=== PATIENT | male | born 1955 | race Caucasian/White ===

== ENCOUNTER 2018-09-12 19:06 | Observation (INO) | payer BC ==
[~2018-09-12 19:06] MED LIST: ISOVUE-370 76%-LOCM 1 ML ONE
[2018-09-12 19:39] LABS: #Basophils 0.1 thou/uL (0.0-0.2); #Eosinphils 0.4 thou/uL (0.0-0.7); #Lymphocytes 2.1 thou/uL (1.20-3.40); #Monocytes 1.4 thou/uL (0.11-0.59); #Neutrophils 8.7 thou/uL (1.40-6.50); %Basophils 0.6 % (0.0-1.0); %Eosinophils 3.2 % (0.0-10.0); %Lymphocytes 16.3 % (21.0-51.0); %Monocytes 10.8 % (0.0-10.0); %Neutrophils 69.1 % (42.0-75.0); Hemoglobin 15.8 g/dL (14.0-18.0); Mean Corpuscular HGB CONC 34.6 g/dL (32.0-36.0); Mean Corpuscular Hemoglobin 32.7 pg (27.0-31.0); Mean Corpuscular Volume 94.6 fL (78.0-98.0); Mean Platelet Volume 9.7 fL (7.4-10.4); Platelet Count 219 thou/uL (130-400); RBC Distribution Width 11.8 % (11.5-14.5); Red Blood Cell (RBC) Count 4.82 mill/uL (4.70-6.10); White Blood Cell (WBC) Count 12.6 thou/uL (4.8-10.8)
--- NOTE | 2018-09-12 19:57 | RAD ---
CHEST ONE VIEW: HISTORY: Chest pain. FINDINGS: Heart size is within normal limits. The aorta is tortuous. The lungs are clear of any infiltrative process. IMPRESSION: No active intrathoracic disease. POS: NAYANA
[2018-09-12] MEDS ORDERED: Ketorolac Tromethamine 30 MG/ML VIAL ONE (19:58)
[2018-09-12] MEDS ORDERED: Morphine 4 MG/ML VIAL ONE (19:58)
[2018-09-12 20:00] LABS: ALT (SGPT) 30 U/L (8-55); AST (SGOT) 24 U/L (5-34); Albumin 4.6 g/dL (3.4-4.8); Alkaline Phosphatase 59 U/L (40-150); Anion Gap 10 mmol/L (10-20); BUN (Urea Nitrogen) 17 mg/dL (8.4-25.7); CK (CPK) 125 U/L (30-200); Calc. Creatinine Clearance 0 mL/min (70-130); Calcium 9.6 mg/dL (7.8-10.44); Carbon Dioxide 26 mmol/L (23-31); Chloride 105 mmol/L (98-107); Estimated GFR-MDRD 68; Globulin 3.4 g/dL (2.4-3.5); Glucose 96 mg/dL (80-115); Lipase 16 U/L (8-78); Sodium 137 mmol/L (136-145)
[2018-09-12 20:03] LABS: CKMB 2.4 ng/mL (0-6.6); Troponin I Less than 0.010 ng/mL (< 0.028)
--- NOTE | 2018-09-12 21:47 | CT ---
CT ANGIOGRAM OF THE CHEST AND ABDOMEN: 09/12/2018 HISTORY: Left-sided chest pain and shoulder pain, radiating into the axillary region. COMPARISON: None. TECHNIQUE: Serial axial CT imaging at 2.5 mm intervals, from the thoracic inlet through the aortic bifurcation, with IV contrast, using a CT angiogram protocol. Coronal and sagittal 3D reformatted imaging obtaine d. FINDINGS: No axillary, hilar, or mediastinal lymphadenopathy noted. There is no significant pleural, pericardial, or mediastinal fluid noted. No pneumothorax is noted on either side. There is a lesion within the left mainstem bronchus, measuring 6 mm, best seen on image 38, etiology/ significance uncertain. This could signify a polypoid lesion or a focal area of mucus. The lung parenchyma demonstrates no acute findings on either side. There is no evidence for aneurysm or dissection of the thoracic aorta. The liver, gallbladder, spleen, pancreas, adrenal glands, and kidneys demonstrate no acute findings. There is an anterior mid pole right renal cyst. Limited assessment of the bowel demonstrates diverticulosis of the descending colon. There are scattered, small caliber, upper abdominal varices, in the right upper quadrant and left upp er quadrant, which could be related to hepatocellular disease. Clinical correlation is required. There is no aneurysm or dissection of the abdominal aorta . There is atherosclerotic calcification of the infrarenal abdominal aorta. The celiac axis, the super ior mesenteric artery, The bilateral renal arteries, and the inferior mesenteric artery are patent. Review of the osseous structures demonstrates multilevel degenerative change throughout the mid thora cic spine and throughout the lumbar spine. Multiple levels within the lumbar spine demonstrate promi nently, as well as prominent disk space narrowing, osteophytes formation, and vacuum rené formation. On axial image 167, there is a clustered area of rim calcified structures, clustered within the right lower quadrant, in total measuring 1.9 cm. This could represent a collection of calcified structure s within bowel or could represent a calcified mesenteric mass, on the basis of carcinoid tumor. IMPRESSION: 1. No evidence for aneurysm or dissection of the thoracic or abdominal aorta. 2. Polypoid density within the mainstem bronchus on the left, which could represent a polypoid lesio n or a focus or mucus. Short-term followup CT examination of the chest in 4-6 weeks is advised. If this focus persists, bronchoscopy would be advised. 3. Clustered area of rim calcified structures within the right lower quadrant, which may represent b owel content. A calcified soft tissue mass within the mesentery, on the basis of a carcinoid tumor, is a possibility. Short-term follow-up CT examination of the abdomen and pelvis is advised, as somet kayla within the bowel would clear while a calcified mass within the mesentery would not. 4. Small caliber upper abdominal varices. CODE T POS: DAVID
[2018-09-12 22:54] LABS: Troponin I Less than 0.010 ng/mL (< 0.028)
--- NOTE | 2018-09-12 23:12 | PDOC.FPRHP ---
- History of Present Illness Chief Complaint: chest pain History of Present Illness: This is a 63 yo male presenting to the ER for chest pain. Patient states the chest pain started a few days ago and has gotten progressively worse. Patients describes the pain as sharp, left sided and radiating down his arm. He also notes an episode of sharp back pack, left upper back as well. He endorses that his left fingers would go numb during these episodes of pain. Patient states the pain has been intermittent. Worse while laying still. Better with walking. Patient states he took ASA but no other medication to relief pain. Patient denies injury to left shoulder/arm. Patient rates pain 10/10 at its worst and pain was relieved after medications given in ED. Endorses waking up during the night over the last couple nights due to the pain. Patient denies NVD, fever, chills, diaphoresis, abdominal pain, LE swelling. ED Course: Patient given ketorolac 30mg IV, 4mc IV morphine, ASA 324 - Allergies/Adverse Reactions Allergies Allergy/AdvReac Type Severity Reaction Status Date / Time No Known Drug Allergies Allergy Verified 09/12/18 23:51 - Home Medications Medication Instructions Recorded Confirmed Type Amlodipine [Norvasc] 10 mg PO DAILY 09/12/18 09/12/18 History Levothyroxine Sodium [Synthroid] 50 mcg PO DAILY 09/12/18 09/12/18 History - History PMHx: HTN, hypothyroidism, hypertensive cardiomegaly PSHx: right femur fixation, appendectomy, inguinal hernia FHx: mother - aneurysm; father -lung cancer, [place] Social: former smoker - quit within the last 2 years, > 25 yr smoking hx of 1- 2packs/day; occasional alcohol use, denies drug use - Review of Systems General: denies: fever/chills, weight/appetite/sleep changes, night sweats, fatigue Eyes: denies: vision changes ENT: denies: nasal congestion Respiratory: denies: cough, congestion, shortness of breath, exercise intolerance Cardiovascular: reports: chest pain, palpitation, edema Gastrointestinal: denies: nausea, vomiting, diarrhea, constipation, abdominal pain Genitourinary: denies: dysuria Skin: denies: rashes, lesions, jaundice Musculoskeletal: reports: pain, tenderness. denies: stiffness, swelling, arthritis/arthralgias Neurological: reports: numbness. denies: syncope, seizure, weakness - Vital signs BP: 157/90 HR: 76 RR: 18 Tmax: 97.8 Pox: 100% on RA Wt: 90.7kg - Physical Exam Constitutional: NAD, awake, alert and oriented, well developed HEENT: normocephalic and atraumatic, PERRLA, EOMI, conjunctiva clear, no scleral icterus, grossly normal vision, grossly normal hearing, MMM Neck: supple, FROM, trachea midline, no JVD Chest: no-tender to palpation, no lesions Heart: RRR, normal S1/S2, no murmurs/rubs/gallops Lungs: CTAB, no respiratory distress, good air movement, no wheezing Abdomen: soft, non-tender, bowel sounds present Musculoskeletal: normal structure, normal tone -Musculoskeletal: TTP of left deltoid/upper arm/scapula Neurological: no focal deficit, CN II-XII intact, normal sensation -Neurological: strength 5/5 in upper extremities Skin: no rash/lesions, good turgor, capillary refill <2 seconds Psychiatric: normal mood and affect, good judgment and insight, intact recent and remote memory FMR H&P: Results - Labs Result Diagrams: 09/13/18 01:43 09/13/18 01:43 Lab results: WBC 12.6 thou/uL (4.8-10.8) H 09/12/18 19:30 Hgb 15.8 g/dL (14.0-18.0) 09/12/18 19:30 Hct 45.6 % (42.0-52.0) 09/12/18 19:30 MCV 94.6 fL (78.0-98.0) 09/12/18 19:30 Plt Count 219 thou/uL (130-400) 09/12/18 19:30 Neutrophils % 69.1 % (42.0-75.0) 09/12/18 19:30 Sodium 137 mmol/L (136-145) 09/12/18 19:30 Potassium 4.0 mmol/L (3.5-5.1) 09/12/18 19:30 Chloride 105 mmol/L (98-107) 09/12/18 19:30 Carbon Dioxide 26 mmol/L (23-31) 09/12/18 19:30 BUN 17 mg/dL (8.4-25.7) 09/12/18 19:30 Creatinine 1.09 mg/dL (0.6-1.3) 09/12/18 19:30 Glucose 96 mg/dL (80-115) 09/12/18 19:30 Calcium 9.6 mg/dL (7.8-10.44) 09/12/18 19:30 Total Bilirubin 1.0 mg/dL (0.2-1.2) 09/12/18 19:30 AST 24 U/L (5-34) 09/12/18 19:30 ALT 30 U/L (8-55) 09/12/18 19:30 Alkaline Phosphatase 59 U/L (40-150) 09/12/18 19:30 Creatine Kinase 125 U/L (30-200) 09/12/18 19:30 CK-MB (CK-2) 2.4 ng/mL (0-6.6) 09/12/18 19:30 Serum Total Protein 8.0 g/dL (5.8-8.1) 09/12/18 19:30 Albumin 4.6 g/dL (3.4-4.8) 09/12/18 19:30 Lipase 16 U/L (8-78) 09/12/18 19:30 - EKG Interpretation EKG: normal sinus rhythm, no ST changes - Radiology Interpretation CT scan - chest Status: report reviewed by me (Density in left mainstem bronchus; calcified soft tissue mass in mesentery - possible carcinoid tumor) FMR H&P: A/P - Problem List (1) Chest pain Current Visit: Yes Status: Acute Code(s): R07.9 - CHEST PAIN, UNSPECIFIED (2) Hypertensive cardiomegaly Current Visit: Yes Status: Acute Code(s): I11.9 - HYPERTENSIVE HEART DISEASE WITHOUT HEART FAILURE (3) Hypothyroid Current Visit: Yes Status: Acute Code(s): E03.9 - HYPOTHYROIDISM, UNSPECIFIED - Plan Atypical Chest Pain - ACS r/o - likely MSK pain - heart score 2 - Trop neg, will trend one more time @ 0130 - nml EKG - Will obtain stress test tomorrow - risk stratify with lipids, A1C, TSH, Mg, Phos - NPO at midnight, will start LR @ 125mls/hr Hx of HTN Cardiomegaly - aware, continue home meds - no clinical signs of CHF - monitor BPs and other VS Hypothyroidism - aware, continue home meds - Will obtain TSH DISPO: admit to tele, obs for further work up CODE: FULL VTE prophylaxis: SCDs GI prophylaxis: Protonix Case discussed with Dr. Morrison FMR H&P: Upper Level - Pertinent history Ismael Monaco is a 63 year old male with a history of hypertension who presents to the ED with a one day history of intermittent, non-exertional left- sided chest pain that radiates to his right shoulder. Pain was 10/10 at it's worst. Relieved by Morphine and Toradol given to him in the ED. - Pertinent findings Vitals: BP: 157/90 HR: 76 RR: 18 Tmax: 97.8 Pox: 100% on RA Physical Exam: General: alert and oriented; in no distress; no active chest pain Heart: regular rate and rhythm, no murmurs, rubs, or gallops. Lungs: clear to auscultation bilateraly. MSK: moves all extremities well; tenderness to palpation along left anterior chest wall. Tenderness to palpation along superolateral trapezius and increased muscle tone noted in this area. Negative empty can, negative Tan, Negative Neer's test; normal ROM EKG: normal sinus rhythm; no evidence of acute ischemia. Trop negative x 1 - Plan Date/Time: 09/12/18 [id number] I, Mely Woodward, have evaluated this patient and agree with findings/plan as outlined by international flight attendant resident. Pertinent changes/additions are listed here. Atypical chest pain, likely secondary to musculoskeletal etiology. - will admit to telemetry for observation. - trend troponins - Stress test in AM. - NSAIDs for pain. - consider addition of high dose statin based on ASCVD risk score. Hypertension - continue amlodipine Hypothyroidsm - continue levothyroxine Attending Addendum - Attending Addendum Date/Time: 09/13/18 [id number] I personally evaluated the patient and discussed the management with Dr. Hoover. I agree with and repeated the History, Examination, Assessment and Plan documented above with any addition or exceptions noted below.
[2018-09-12 23:43] LABS: Hemoglobin A1c 5.6 % (4.0-6.0)
[2018-09-12 23:44] LABS: Magnesium 2.3 mg/dL (1.6-2.6); Phosphorus 3.4 mg/dL (2.3-4.7)
[2018-09-12] MEDS ORDERED: Ondansetron ODT 4 MG TAB PO PRN (23:48)
[2018-09-12] MEDS ORDERED: Ondansetron PF 4 MG/2 ML Vial IVP PRN (23:48)
[2018-09-12] MEDS ORDERED: Acetaminophen 325 MG TAB PO PRN (23:48)
[2018-09-13] MEDS: Lactated Ringer's 1,000 ML IV SCH ×2 (00:52→10:46)
[2018-09-13] MEDS ORDERED: Ibuprofen 800 MG TAB PO PRN (00:57)
[2018-09-13 01:07] VITALS: BMI 31.5
[2018-09-13 02:00] LABS: #Basophils 0.1 thou/uL (0.0-0.2); #Eosinphils 0.5 thou/uL (0.0-0.7); #Lymphocytes 1.4 thou/uL (1.20-3.40); #Monocytes 1.4 thou/uL (0.11-0.59); #Neutrophils 5.8 thou/uL (1.40-6.50); %Basophils 0.8 % (0.0-1.0); %Lymphocytes 15.4 % (21.0-51.0); %Monocytes 14.9 % (0.0-10.0); %Neutrophils 63.9 % (42.0-75.0); Hemoglobin 14.1 g/dL (14.0-18.0); Mean Corpuscular HGB CONC 34.1 g/dL (32.0-36.0); Mean Corpuscular Hemoglobin 32.7 pg (27.0-31.0); Mean Corpuscular Volume 95.9 fL (78.0-98.0); Platelet Count 189 thou/uL (130-400); RBC Distribution Width 11.9 % (11.5-14.5); White Blood Cell (WBC) Count 9.1 thou/uL (4.8-10.8)
[2018-09-13 02:25] LABS: Troponin I Less than 0.010 ng/mL (< 0.028)
[2018-09-13 02:31] LABS: Anion Gap 10 mmol/L (10-20); BUN (Urea Nitrogen) 20 mg/dL (8.4-25.7); Calc. Creatinine Clearance 100 mL/min (70-130); Calcium 9.3 mg/dL (7.8-10.44); Carbon Dioxide 28 mmol/L (23-31); Cardiac Risk 4.8 (Less than 4.5); Chloride 106 mmol/L (98-107); Cholesterol 174 mg/dl (< 200 Desired); Estimated GFR-MDRD 74; Glucose 118 mg/dL (80-115); HDL Cholesterol 36 mg/dL (>60 Neg Risk); LDL Cholesterol, Calculated 116 mg/dL; Potassium 3.7 mmol/L (3.5-5.1); Sodium 140 mmol/L (136-145); Triglycerides 110 mg/dL (Less than 150)
[2018-09-13] MEDS ORDERED: LEVOTHYROXINE 50 MCG PO SCH (06:00)
[2018-09-13] MEDS ORDERED: Levothyroxine Sodium 50 MCG TAB PO SCH (06:00)
[2018-09-13] MEDS ORDERED: Cyclobenzaprine 10 MG TAB PO PRN (07:22)
[2018-09-13] MEDS ORDERED: Nitroglycerin 0.4 MG TAB (25 Tab Bottle) SL PRN (07:39)
[2018-09-13] MEDS ORDERED: AMLODIPINE 10 MG PO SCH (09:00)
[2018-09-13] MEDS ORDERED: Amlodipine 10 MG TAB PO SCH (09:00)
--- NOTE | 2018-09-13 11:25 | PDOC.FM ---
- Subjective Subjective: Patient doing ok this AM. No significant overnight events. Patient states that the pain in his chest/shoulder is back. It comes in "twinges". He describes it as a deep, achy feeling. Patient states he had shingles in a similar distribution years ago, and this feels somewhat similar to that. He denies any shortness of breath. The chest pain is better when he stands up and moves his arm around. - Objective MAR Reviewed: Yes Vital Signs & Weight: Vital Signs (12 hours) Temp Pulse Resp BP Pulse Ox 09/13/18 08:10 97 09/13/18 03:27 98.1 F 71 20 137/87 94 L 09/12/18 23:48 99 Weight Weight 96.751 kg I&O: 09/12/18 09/13/18 09/14/18 06:59 06:59 06:59 Intake Total 210 886 Balance 210 886 Result Diagrams: 09/13/18 01:43 09/13/18 01:43 EKG Reviewed by me: Yes Radiology Reviewed by me: Yes <Nova Noyola - Last Filed: 09/13/18 11:30> - Objective Vital Signs & Weight: Vital Signs (12 hours) Temp Pulse Resp BP BP Pulse Ox 09/13/18 15:41 98.0 F 81 16 142/82 H 94 L 09/13/18 11:41 97.3 F L 63 16 114/70 93 L Weight Weight 96.751 kg I&O: 09/12/18 09/13/18 09/14/18 06:59 06:59 06:59 Intake Total 210 1638 Balance 210 1638 Result Diagrams: 09/13/18 01:43 09/13/18 01:43 <Luciana Grace - Last Filed: 09/13/18 22:46> Phys Exam - Physical Examination Constitutional: NAD HEENT: moist MMs Neck: supple Respiratory: no wheezing, clear to auscultation bilateral Cardiovascular: RRR, no significant murmur Gastrointestinal: soft, no distention Musculoskeletal: no edema, pulses present Tender to palpation over left shoulder joint, and ribs 1-3 anteriorly Neurological: non-focal, moves all 4 limbs Psychiatric: normal affect, A&O x 3 Deviation from normal: Erythema over right, upper, posterior thoracic region <Nova Noyola - Last Filed: 09/13/18 11:30> Dx/Plan (1) Chest pain Code(s): R07.9 - CHEST PAIN, UNSPECIFIED Status: Acute (2) Hypertensive cardiomegaly Code(s): I11.9 - HYPERTENSIVE HEART DISEASE WITHOUT HEART FAILURE Status: Chronic (3) Hypothyroid Code(s): E03.9 - HYPOTHYROIDISM, UNSPECIFIED Status: Chronic - Plan Plan: 63 year old male presents with a several day history of ongoing chest pain: Atypical Chest Pain - ACS r/o - likely MSK pain - heart score 2 - Trop neg x3 - nml EKG - Stress test pending - Will attempt nitro for pain relief, if that does not help can consider muscle relaxer - Lipid panel abnormal; ASCVD risk of 20.3%; started on atorvastatin - Can d/c fluids once able to take PO after stress test - Xray left shoulder to further evaluate MSK pain as cause - Can consider gabapentin if XR negative and stress test negative as patient had shingles in similar distribution previously Hx of HTN Cardiomegaly - aware, continue home meds - no clinical signs of CHF - monitor BPs and other VS Hypothyroidism - aware, continue home meds - TSH pending Hyperlipidemia - new diagnosis - ASCVD score of 20.3% - Started on statin DISPO: Stable. Patient may be candidate for d/c home pending stress test results. CODE: FULL VTE prophylaxis: SCDs GI prophylaxis: Protonix <Nova Noyola - Last Filed: 09/13/18 11:30> Attending Addendum - Attending Addendum Date/Time: 09/13/18 3125 I personally evaluated the patient and discussed the management with Dr. Noyola I agree with the History, Examination, Assessment and Plan documented above with any addition or exceptions noted below- Patient reports that left upper chest pain improved after taking the gabapentin. Reports that the pain is like a burning pain with associated numbness in 3rd-5th fingers. Afebrile VSS. A/P: 1 ) Atypical chest pain- cardiac enzymes negative. Stress test negative. uspect pain secondary to cervical radiculopathy. D/C home with gabapentin as this has improved pain. Follow-up wit PCP on Wednesday. <Luciana Grace - Last Filed: 09/13/18 22:46>
--- NOTE | 2018-09-13 13:30 | RAD ---
LEFT SHOULDER THREE VIEWS: History: Shoulder pain. Comparison: Prior day. FINDINGS: No acute displaced fracture or malalignment. Mild degenerative changes of the acromioclavicular joint . IMPRESSION: No acute displaced fracture or malalignment. POS: DAVID
[2018-09-13] MEDS ORDERED: Gabapentin 300 MG CAP PO SCH ×2 (13:45→21:00)
--- NOTE | 2018-09-13 15:38 | NM ---
CARDIAC SPECT: HISTORY: A 63-year-old male with chest pain, hypertension, and cardiomyopathy. TECHNIQUE: A myocardial perfusion scan was performed using the single isotope one-day protocol with technetium 9 9m sestamibi, and 11 millicuries was injected intravenously for the rest exam, followed by 31 millicu nikita for the stress study. Pharmacologic stress with adenosine was monitored and interpreted by Dr. Hsu. FINDINGS: Homogeneous tracer distribution is seen in the myocardial segments on stress and rest images without fixed or reversible defects. GATED SPECT LVEF: 68% WALL MOTION EXAM: Normal. IMPRESSION: Normal myocardial perfusion scan. POS: OFF
[2018-09-13 15:54] VITALS: BP 142/82; TEMP 98
[2018-09-13] MEDS ORDERED: ADENOSINE 60 MG/20 ML VIAL ONE (16:45)
[2018-09-13] MEDS ORDERED: Atorvastatin Calcium 10 MG TAB PO SCH (21:00)
--- NOTE | 2018-09-17 11:16 | STRESS ---
Acquisition Time: 2018-09-13 09:10:20 Total Exercise Time: 00:04:00 Test Indications: CHEST PAIN Medications: Protocol: ADENOSINE Max HR: 120 BPM 76% of Pred: 156 BPM Max BP: 178/098 mmHG Max Work Load: 1.0 METS RESTING ECG: NORMAL SINUS RHYTHM AT 68 BPM ECTOPY: RARE PVC'S AND WENCKEBACH ECG STRESS: NO SIGNIFICANT CHANGES INTERPRETATION: AWAIT NUCLEAR IMAGES FOR DEFINITIVE DIAGNOSIS Confirmed by YSA CARBALLO ([id number]), index editor CHRISTIANO JOYCE ([id number]) on 09/17/2018 11:15:48 AM Referred By: MD Keira BAI Confirmed By:YAS CARBALLO
--- NOTE | 2018-09-17 16:18 | EKG ---
Test Reason : CHEST PAIN Blood Pressure : / mmHG Vent. Rate : 075 BPM Atrial Rate : 075 BPM P-R Int : 200 ms QRS Dur : 092 ms QT Int : 370 ms P-R-T Axes : 048 004 010 degrees QTc Int : 413 ms Normal sinus rhythm Normal ECG Confirmed by ERIC MUSE ([id number]), website/blog editor ARA RAMIREZ ([id number]) on 09/17/2018 4:18:28 PM Referred By: Confirmed By:ERIC MUSE
== END 2018-09-13 17:19 | disposition home or self-care (01) ==
LOC: ERS 19:06 → 2SW 22:17
PROVIDERS: ADMIT Emergency Medicine; ATTEND Emergency Medicine
DX: R07.89 Other chest pain (principal); I11.9 Hypertensive heart disease without heart failure; E03.9 Hypothyroidism, unspecified; E78.5 Hyperlipidemia, unspecified; Z87.891 Personal history of nicotine dependence; Z79.899 Other long term (current) drug therapy
CPT/HCPCS: 36415; 71045; 71275; 78452; 80048; 80053; 80061; 82550; 82553; 83036; 83690; 83735; 84100; 84439; 84443; 84484; 85025; 85379; 93005; 93017; 94760; 96361; 96374; 96375; A9500; G0378; J0153; J1885; J2270

== ENCOUNTER 2019-01-13 06:13 | Day surgery (SDC) | payer BC ==
[2019-01-12 11:01] VITALS: BMI 29.5
[2019-01-13] MEDS ORDERED: Fentanyl 250 MCG/5 ML VIAL ONE (06:24)
[2019-01-13] MEDS ORDERED: Sodium Chloride 0.9% 10 ML ONE (06:59)
[2019-01-13 07:00] LABS: Hemoglobin 14.8 g/dL (14.0-18.0); Mean Corpuscular HGB CONC 33.5 g/dL (32.0-36.0); Mean Corpuscular Hemoglobin 32.6 pg (27.0-31.0); Mean Corpuscular Volume 97.3 fL (78.0-98.0); Mean Platelet Volume 9.4 fL (7.4-10.4); Platelet Count 191 thou/uL (130-400); RBC Distribution Width 12.2 % (11.5-14.5); Red Blood Cell (RBC) Count 4.54 mill/uL (4.70-6.10); White Blood Cell (WBC) Count 11.6 thou/uL (4.8-10.8)
[2019-01-13 07:21] LABS: Anion Gap 10 mmol/L (10-20); BUN (Urea Nitrogen) 18 mg/dL (8.4-25.7); Calc. Creatinine Clearance 81 mL/min (70-130); Calcium 9.5 mg/dL (7.8-10.44); Carbon Dioxide 26 mmol/L (23-31); Chloride 107 mmol/L (98-107); Estimated GFR-MDRD 62; Glucose 96 mg/dL (80-115); Potassium 4.2 mmol/L (3.5-5.1); Sodium 139 mmol/L (136-145)
--- NOTE | 2019-01-13 09:56 | OP ---
DATE OF PROCEDURE: 01/13/2019 VENEER REPAIRER MACHINE: Jay Diaz PA-C PROCEDURES PERFORMED: Anterior cervical diskectomy C5-C6 and C6-C7, interbody arthrodesis, intervertebral biomechanical device, local morselized autograft, demineralized bone matrix, anterior titanium instrumentation C5-C6 and C6-C7. DESCRIPTION OF PROCEDURE: The patient was brought to the operating room and intubated. He was positioned supine with the head in modest extension on gel-filled donut. An incision was made in the right precervical area and dissected medial to the sternocleidomastoid muscle. We identified the anterior cervical spine, and the level was confirmed by x-ray. The patient had dramatic anterior osteophytes, which were debrided extensively. Distraction was placed between C5 and C7 and the disks were removed entirely. The bony endplates were decorticated for the purpose of arthrodesis and appropriate-sized intervertebral biomechanical PEEK device was brought in the field. It was filled with demineralized bone matrix and local morselized autograft, and tapped in place securely at C5-C6 and C6-C7. Next, an anterior plate was brought into the field and secured at C5, C6, and C7 using two 14-mm screws at each level. The wound was then extensively irrigated and maximum hemostasis was secured and the wound was closed in anatomic layers over drain. Job ID: [id number]
[2019-01-13] MEDS ORDERED: HYDROmorphone 2 MG/ML VIAL SLOW IVP PRN (10:04)
[2019-01-13] MEDS ORDERED: Promethazine HCl 25 MG/ML VIAL SLOW IVP PRN (10:04)
[2019-01-13] MEDS ORDERED: Morphine Sulfate 2 MG/ML SYRINGE SLOW IVP PRN (10:04)
[2019-01-13] MEDS ORDERED: Ondansetron HCl/PF 4 MG/2 ML Vial IVP PRN (10:04)
[2019-01-13] MEDS ORDERED: Promethazine HCl 25 MG/ML VIAL IM PRN ×2 (10:04→10:33)
[2019-01-13] MEDS ORDERED: Meperidine HCl/PF 25 MG/ML VIAL SLOW IVP PRN (10:04)
[2019-01-13] MEDS ORDERED: Ketorolac Tromethamine 30 MG/ML VIAL IVP PRN (10:04)
[2019-01-13] MEDS ORDERED: ePHEDrine 50 MG/ML VIAL ONE (10:14)
[2019-01-13] MEDS ORDERED: Rocuronium Bromide 10 MG/ML (10ML VIAL) ONE (10:14)
[2019-01-13] MEDS ORDERED: PROPOFOL 200 MG/20 ML VIAL ONE (10:14)
[2019-01-13] MEDS ORDERED: Ondansetron PF 4 MG/2 ML Vial ONE (10:14)
[2019-01-13] MEDS ORDERED: Lidocaine 1% PF 5 ML VIAL ONE (10:14)
[2019-01-13] MEDS ORDERED: Dexamethasone 20 MG/5 ML VIAL ONE (10:14)
[2019-01-13] MEDS ORDERED: Glycopyrrolate 0.2 MG/ML 5 ML SYRINGE ONE (10:14)
[2019-01-13] MEDS ORDERED: Fentanyl 100 MCG/2 ML VIAL ONE ×3 (10:16→10:55)
[2019-01-13] MEDS ORDERED: diphenhydrAMINE 25 MG CAP PO PRN (10:33)
[2019-01-13] MEDS ORDERED: tiZANidine HCl 4 MG TAB PO PRN (10:33)
[2019-01-13] MEDS ORDERED: Morphine 4 MG/ML VIAL SLOW IVP PRN (10:33)
[2019-01-13] MEDS ORDERED: Promethazine 25 MG TAB PO PRN (10:33)
[2019-01-13] MEDS ORDERED: Ondansetron PF 4 MG/2 ML Vial IVP PRN (10:33)
[2019-01-13] MEDS ORDERED: diphenhydrAMINE 50 MG/ML VIAL IVP PRN (10:33)
[2019-01-13] MEDS ORDERED: Promethazine HCl 12.5 MG SUPP PR PRN (10:33)
[2019-01-13] MEDS ORDERED: traMADol HCl 50 MG TAB PO PRN ×2 (10:33)
[2019-01-13] MEDS ORDERED: Mag-Al 1200 mg/1200 mg/30 ML UDCUP PO PRN (10:33)
[2019-01-13] MEDS ORDERED: Milk Of Magnesia 30 ML UDCUP PO PRN (10:33)
[2019-01-13] MEDS ORDERED: HYDROcodone/Acetaminophen 10/325 mg Tablet PO PRN (10:33)
[2019-01-13] MEDS: Sodium Chloride 0.9% 1,000 ML IV SCH (12:00)
[2019-01-13] MEDS: HYDROcodone/Acetaminophen 10/325 mg Tablet PO PRN ×2 (12:24→16:28)
[2019-01-13] MEDS ORDERED: hydrALAZINE 20 MG/ML VIAL SLOW IVP PRN (14:02)
[2019-01-13] MEDS: CEFAZOLIN 2 GM in Premix Bag 1 BAG IVPB SCH (16:02)
[2019-01-13] MEDS: Gabapentin 300 MG CAP PO SCH ×2 (16:03→21:34)
--- NOTE | 2019-01-13 22:51 | PDOC.PN ---
- Subjective Encounter Start Date: 01/13/19 Encounter Start Time: 14:00 Patient seen and examined for med mngt. No CP/SOB. No new complaints. No overnight events - Objective Resuscitation Status - Order Detail: 01/13/19 12:36 Resuscitation Status Routine Resuscitation Status: FULL: Full Resuscitation MAR Reviewed: Yes Vital Signs & Weight: Vital Signs (12 hours) Temp Pulse Resp BP Pulse Ox 01/13/19 20:30 97.9 F 73 20 124/79 96 01/13/19 16:30 97.8 F 92 16 136/89 92 L 01/13/19 14:30 98 16 126/87 93 L 01/13/19 13:30 97.4 F L 101 H 14 136/90 94 L 01/13/19 13:00 97 18 131/83 95 01/13/19 12:30 98 18 132/85 92 L 01/13/19 12:00 97.4 F L 101 H 16 125/54 L 94 L Weight Weight 200 lb Result Diagrams: 01/13/19 06:50 01/13/19 06:50 Phys Exam - Physical Examination Constitutional: NAD Respiratory: no wheezing, no rhonchi Cardiovascular: RRR, no rub Gastrointestinal: soft, non-tender, positive bowel sounds Musculoskeletal: no edema Dx/Plan - Plan DVT proph w/SCDs 1. HTN 2. Hypothyroidism 3. CKD 2 PLAN: Cont Amlodipine Cont Levothyroxine Cont to monitor Will follow. Thank you for this consultation Review of Systems - Review of Systems Respiratory: negative: Cough, Dry, Shortness of Breath, Hemoptysis, SOB with Excertion, Pleuritic Pain, Sputum, Wheezing Cardiovascular: negative: chest pain, palpitations, orthopnea, paroxysmal nocturnal dyspnea, edema, light headedness, other - Medications/Allergies Allergies/Adverse Reactions: Allergies Allergy/AdvReac Type Severity Reaction Status Date / Time No Known Drug Allergies Allergy Verified 01/12/19 11:01 Medications: Current Medications Hydrocodone Bitart/Acetaminophen ([place] 10/325) 1 tab PO Q4H PRN PRN Reason: PAIN (1-3) Hydrocodone Bitart/Acetaminophen ([place] 10/325) 2 tab PO Q4H PRN PRN Reason: PAIN (4-6) Last Admin: 01/13/19 16:28 Dose: 2 tab Al Hydroxide/Mg Hydroxide (Maalox) 30 ml PO Q4H PRN PRN Reason: Heartburn or Indigestion Amlodipine Besylate (Norvasc) 10 mg PO DAILY [facility] Diphenhydramine HCl (Benadryl) 25 mg PO Q6H PRN PRN Reason: Itching Diphenhydramine HCl (Benadryl) 25 mg IVP Q6H PRN PRN Reason: Itching Gabapentin (Neurontin) 300 mg PO TID [facility] Last Admin: 01/13/19 21:34 Dose: 300 mg Hydralazine HCl (Apresoline) 10 mg SLOW IVP Q4H PRN PRN Reason: SBP Greater Than 180 Sodium Chloride (Normal Saline 0.9%) 1,000 mls @ 75 mls/hr IV .[id number] [facility] Last Admin: 01/13/19 12:00 Dose: 1,000 mls Cefazolin Sodium/Dextrose 2 gm (/ Device) 50 mls @ 100 mls/hr IVPB 0000,0800, 1600 [facility] Last Admin: 01/13/19 16:02 Dose: 50 mls Levothyroxine Sodium (Synthroid) 75 mcg PO 0600 [facility] Magnesium Hydroxide (Milk Of Magnesium) 30 ml PO Q12H PRN PRN Reason: Constipation Morphine Sulfate (Morphine) 2 mg SLOW IVP Q1H PRN PRN Reason: Moderate Breakthrough Pain Morphine Sulfate (Morphine) 4 mg SLOW IVP Q1H PRN PRN Reason: SEVERE BREAKTHROUGH PAIN Ondansetron HCl (Zofran) 4 mg IVP Q24H PRN PRN Reason: Nausea/Vomiting Last Admin: 01/13/19 20:18 Dose: 4 mg Promethazine HCl (Phenergan) 12.5 mg IM Q4H PRN PRN Reason: Nausea/Vomiting Promethazine HCl (Phenergan) 12.5 mg PO Q4H PRN PRN Reason: Nausea/Vomiting Promethazine HCl (Phenergan Suppository) 12.5 mg AR Q4H PRN PRN Reason: Nausea/Vomiting Sodium Chloride (Flush - Normal Saline) 10 ml IVF PRN PRN PRN Reason: Saline Flush Tizanidine HCl (Zanaflex) 4 mg PO Q6H PRN PRN Reason: MUSCLE SPASM Last Admin: 01/13/19 21:33 Dose: 4 mg Tramadol HCl (Ultram) 50 mg PO Q6H PRN PRN Reason: PAIN (1-3) Tramadol HCl (Ultram) 100 mg PO Q6H PRN PRN Reason: PAIN (4-6)
[2019-01-14] MEDS: CEFAZOLIN 2 GM in Premix Bag 1 BAG IVPB SCH ×2 (01:11→07:56)
[2019-01-14] MEDS: HYDROcodone/Acetaminophen 10/325 mg Tablet PO PRN ×2 (01:28→07:56)
[2019-01-14] MEDS: Sodium Chloride 0.9% 1,000 ML IV SCH ×2 (05:05→08:01)
[2019-01-14] MEDS ORDERED: Levothyroxine Sodium 75 MCG TAB PO SCH (06:00)
[2019-01-14] MEDS ORDERED: Polyethylene Glycol 3350 17 GM Packet PO PRN (06:43)
[2019-01-14] MEDS: Gabapentin 300 MG CAP PO SCH (07:56)
[2019-01-14 08:49] VITALS: BP 114/75; TEMP 97.9
[2019-01-14] MEDS ORDERED: Amlodipine 10 MG TAB PO SCH ×2 (09:00)
[2019-01-14] MEDS ORDERED: Senokot S 8.6-50 MG TAB PO SCH (09:00)
--- NOTE | 2019-01-14 09:21 | DIS ---
DATE OF ADMISSION: 01/13/2019 DATE OF DISCHARGE: 01/14/2019 This is Modesta Young PA-C dictating a report for Husam Whiteside MD. The patient is a 63-year-old male, who was seen by us recently in the office for progressive neck pain, who underwent C5 to C7 ACDF on 01/13/2019. Following his surgery, he was transitioned to the Med/Surg floor, where his pain has been controlled with p.o. medication. He is tolerating a regular diet, and he is voiding appropriately. He did have a MARK drain placed intraoperatively, which had 70 mL of output overnight. He is otherwise doing very well and requesting to go home. He is awake, alert, comfortable. Free active range of motion of all extremities. No focal motor weakness. His incision is dry and soft. We will plan to remove his MARK drain and dismiss to home. I have discussed home care precautions. We will follow up with the patient in 2 weeks in the office. Job ID: [id number]
--- NOTE | 2019-01-16 17:50 | EKG ---
Test Reason : PREOP Blood Pressure : / mmHG Vent. Rate : 057 BPM Atrial Rate : 057 BPM P-R Int : 226 ms QRS Dur : 100 ms QT Int : 408 ms P-R-T Axes : 048 -09 -06 degrees QTc Int : 397 ms Sinus bradycardia with 1st degree A-V block Otherwise normal ECG When compared with ECG of 12-SEP-2018 19:09, No significant change was found Confirmed by YAS CARBALLO (2) on 01/16/2019 5:49:53 PM Referred By: HELEN Confirmed By:YAS CARBALLO
== END 2019-01-14 09:50 | disposition home or self-care (01) ==
LOC: SDC 06:13 → SURG B 07:10 → SDC 01-14 09:50
PROVIDERS: ATTEND Neurological Surgery
PROC: 0RG20A0 Fusion of 2 or more Cervical Vertebral Joints with Interbody Fusion Device, Anterior Approach, Anterior Column, Open Approach (ICD-10-PCS; principal; 2019-01-13)
PROC: 0RG2070 Fusion of 2 or more Cervical Vertebral Joints with Autologous Tissue Substitute, Anterior Approach, Anterior Column, Open Approach (ICD-10-PCS; principal; 2019-01-13)
DX: M50.322 Other cervical disc degeneration at C5-C6 level (principal); I12.9 Hypertensive chronic kidney disease with stage 1 through stage 4 chronic kidney disease, or unspecified chronic kidney disease; N18.2 Chronic kidney disease, stage 2 (mild); E03.9 Hypothyroidism, unspecified; Z79.899 Other long term (current) drug therapy
CPT/HCPCS: 36415; 76000; 80048; 85027; 93005; 93010; C1713; C1776; J2405; J3010; J3490

== ENCOUNTER 2019-01-26 10:15 | Outpatient (CLI) | payer BC ==
--- NOTE | 2019-01-26 10:43 | RAD ---
3 views of the cervical spine: 01/26/2019 COMPARISON: None HISTORY: Status post surgery, reevaluate cervical radiculopathy FINDINGS: Open-mouth odontoid view demonstrates a normal-appearing dens and C1-2 articulation. Anteri or discectomy and fusion hardware is present at C5-6/C6-7. No significant prevertebral soft tissue sw elling. No evidence for hardware failure. There is minimal anterolisthesis of C4 on C5 measuring 3 mm . There is disc space narrowing and degenerative endplate change with anterior osteophyte formation a t C4-5, and to a lesser degree, C2-3 and C3-4. No acute osseous abnormality. IMPRESSION: Postoperative and degenerative changes of the cervical spine as detailed above.
== END 2019-01-26 10:16 | disposition home or self-care (01) ==
LOC: TBSIIMAG 10:15
PROVIDERS: ATTEND Neurological Surgery
DX: M47.22 Other spondylosis with radiculopathy, cervical region (principal); Z98.890 Other specified postprocedural states
CPT/HCPCS: 72040

== ENCOUNTER 2019-03-14 13:39 | Outpatient (CLI) | payer BC ==
--- NOTE | 2019-03-14 14:10 | RAD ---
3 views cervical spine: 03/14/2019 COMPARISON: 01/26/2019 HISTORY: Cervical radiculopathy, cervical spine surgery FINDINGS: Stable anterior discectomy and fusion hardware present at C5-6/C6-7. There is disc space narrowing with degenerative endplate change and anterior osteophyte formation at C2-3, C3-4, and C4-5. There is degenerative change at the atlantoaxial interspace. No acute osseous abnormality is noted. Open-mouth odontoid view demonstrates a normal-appearing dens and C1-2 articula tion. IMPRESSION: Postoperative and degenerative change of the cervical spine as above.
== END 2019-03-14 13:40 | disposition home or self-care (01) ==
LOC: TBSIIMAG 13:39
PROVIDERS: ATTEND Neurological Surgery
DX: M50.10 Cervical disc disorder with radiculopathy, unspecified cervical region (principal); M47.22 Other spondylosis with radiculopathy, cervical region; Z98.1 Arthrodesis status
CPT/HCPCS: 72040

== ENCOUNTER 2023-05-19 05:49 | Day surgery (SDC) | payer MEDICARE ==
[2023-05-17 13:51] VITALS: BMI 24.3
[2023-05-19] MEDS ORDERED: Bupivacaine 0.25% HCL 30 ML VIAL ONE (07:05)
[2023-05-19] MEDS ORDERED: EPINEPHrine 1 MG/ML AMP ONE (07:05)
[2023-05-19] MEDS ORDERED: Sodium Chloride 0.9% 100 ML ONE (07:19)
[2023-05-19] MEDS ORDERED: CEFAZOLIN 2 GM VIAL ONE (07:19)
[2023-05-19] MEDS ORDERED: fentaNYL PF 100 MCG/2 ML SYRINGE ONE (07:22)
[2023-05-19] MEDS ORDERED: Midazolam HCl 2 mg/2 ml Vial ONE ×2 (07:22→07:28)
[2023-05-19] MEDS ORDERED: SUGAMMADEX SODIUM 200 MG/2 ML VIAL ONE (07:22)
[2023-05-19] MEDS ORDERED: Lidocaine 1% PF 5 ML VIAL ONE (07:38)
[2023-05-19] MEDS ORDERED: Ondansetron PF 4 MG/2 ML Vial ONE (07:38)
[2023-05-19] MEDS ORDERED: Rocuronium Bromide 10 MG/ML (10ML VIAL) ONE (07:38)
[2023-05-19] MEDS ORDERED: Dexamethasone 20 MG/5 ML VIAL ONE (07:38)
[2023-05-19] MEDS ORDERED: PROPOFOL 200 MG/20 ML VIAL ONE (07:38)
[2023-05-19] MEDS ORDERED: ePHEDrine Sulfate 50 MG/10 ML VIAL ONE (07:38)
[2023-05-19] MEDS ORDERED: Ketorolac Tromethamine 30 MG/ML VIAL ONE (07:38)
[2023-05-19] MEDS ORDERED: Esmolol 100 MG/10 ML VIAL ONE (07:38)
[2023-05-19] MEDS ORDERED: fentaNYL 50 mcg/mL 1 mL Vial ONE ×2 (08:57→09:40)
[2023-05-19] MEDS ORDERED: HYDROcodone/Acetaminophen 5/325 mg Tablet ONE (10:39)
== END 2023-05-19 11:40 | disposition home or self-care (01) ==
LOC: SDC 05:49
PROVIDERS: ATTEND Surgery
PROC: 0YU64JZ Supplement Left Inguinal Region with Synthetic Substitute, Percutaneous Endoscopic Approach (ICD-10-PCS; principal; 2023-05-19)
DX: K40.90 Unilateral inguinal hernia, without obstruction or gangrene, not specified as recurrent (principal); I10 Essential (primary) hypertension; Z90.49 Acquired absence of other specified parts of digestive tract; Z79.899 Other long term (current) drug therapy
CPT/HCPCS: 49650; J3010; C1781; J0171; J1100; J1885; J2250; J2405; J2704; J3490; S0020